=== PATIENT | male | born 1975 | race Caucasian/White ===

== ENCOUNTER 2020-12-04 11:11 | Inpatient (IN) | payer OTHER ==
[~2020-12-04] VITALS: Ht 182.9 cm; Wt 77.7 kg
[2020-12-04 11:51] LABS: BASOPHILS 1.2 % (0-2); EOSINOPHILS 2.5 % (0-7); HEMATOCRIT 50.6 % (42.0-54.0); HEMOGLOBIN 17.2 g/dL (13.5-17.5); IMMATURE GRANULOCYTES 0.2 % (0-5); LYMPHOCYTE ABS# 1.79 10x3/uL (1.32-3.57); LYMPHOCYTES 37.2 % (15-50); MCH 29.6 pg (26.0-34.0); MCV 86.9 fL (80.0-100.0); MEAN PLATELET VOLUME 9.8 fL (7.4-10.4); MONOCYTES 16.8 % (2-11); NEUTROPHIL ABS# 2.02 10x3/uL (1.78-5.38); NEUTROPHILS 42.1 % (40-80); PLATELET COUNT 248 10x3/uL (130-400); RBC 5.82 10x6/uL (4.20-6.10); RDW 13.7 % (11.5-14.5); WBC 4.8 10x3/uL (4.8-10.8)
[2020-12-04 11:59] VITALS: Ht 182.9 cm; Wt 77.7 kg
[2020-12-04 12:01] LABS: APTT 30.9 SECONDS (22.8-39.4); INR 1.13 (0.85-1.17); PROTIME 13.4 SECONDS (11.6-15.0)
[2020-12-04 12:03] LABS: ANION GAP 12.2 mmol/L (8-16); CALCIUM 8.8 mg/dL (8.5-10.1); CARBON DIOXIDE 27.6 mmol/L (21.0-32.0); CREATININE - SERUM 1.2 mg/dL (0.6-1.3); POTASSIUM - SERUM 3.8 mmol/L (3.5-5.1)
[2020-12-04 12:17] LABS: ALBUMIN 3.4 g/dL (3.4-5.0); BILIRUBIN - TOTAL 4.05 mg/dL (0.2-1.3)
[2020-12-04] MEDS ORDERED: OMEPRAZOLE20 M1 PO (13:12)
[2020-12-04 17:30] VITALS: BP 115/64
[2020-12-04 17:46] VITALS: BP 124/74
--- NOTE | 2020-12-04 18:45 | NUR ---
PATIENT IN BED WITH EYES CLOSED RESTING QUIETLY. CALL LIGHT WITHIN REACH.
--- NOTE | 2020-12-04 19:34 | NUR ---
PATIENT IV STARTED X 3 STICKS LEFT ARM. TOLERATED WITH SMALL AMOUNT OF PAIN. NO COMPLAINTS OR SIGNS OF DISTRESS. ZOFRAN GIVEN. IVF STARTED. CALL LIGHT WITHIN REACH.
[2020-12-04 20:03] LABS: BILIRUBIN 1+ (NEGATIVE); KETONE NEGATIVE (NEGATIVE); NITRITE NEGATIVE (NEGATIVE); UROBILINOGEN NORMAL mg/dL (< 2)
[2020-12-04 20:10] LABS: UDS - AMPHET POSITIVE QUAL (NEGATIVE); UDS - BARB NEGATIVE QUAL (NEGATIVE); UDS - BENZO NEGATIVE QUAL (NEGATIVE); UDS - COCAINE NEGATIVE QUAL (NEGATIVE); UDS - OPIATE NEGATIVE QUAL (NEGATIVE); UDS - PCP NEGATIVE QUAL (NEGATIVE); UDS - THC POSITIVE QUAL (NEGATIVE)
[2020-12-05 01:56] VITALS: BP 113/73
--- NOTE | 2020-12-05 02:35 | NUR ---
I have reviewed this patient and I concur with the Shift Assessment completed by the Licensed Practical Nurse today this shift.
[2020-12-05 04:55] VITALS: BP 134/88
[2020-12-05 05:19] LABS: BASOPHILS 1.6 % (0-2); HEMATOCRIT 46.2 % (42.0-54.0); HEMOGLOBIN 15.6 g/dL (13.5-17.5); IMMATURE GRANULOCYTES 0.2 % (0-5); LYMPHOCYTE ABS# 2.46 10x3/uL (1.32-3.57); LYMPHOCYTES 48.9 % (15-50); MCH 29.2 pg (26.0-34.0); MCHC 33.8 g/dL (31.0-37.0); MCV 86.5 fL (80.0-100.0); MEAN PLATELET VOLUME 9.7 fL (7.4-10.4); MONOCYTES 17.1 % (2-11); NEUTROPHIL ABS# 1.47 10x3/uL (1.78-5.38); NEUTROPHILS 29.2 % (40-80); PLATELET COUNT 241 10x3/uL (130-400); RBC 5.34 10x6/uL (4.20-6.10); RDW 13.8 % (11.5-14.5)
[2020-12-05 05:46] LABS: ALBUMIN 2.8 g/dL (3.4-5.0); ALKALINE PHOSPHATASE 386 U/L (30-120); BILIRUBIN - TOTAL 2.79 mg/dL (0.2-1.3); CALC OSMOLALITY 272 mosm/kg (275-300); CALCIUM 8.3 mg/dL (8.5-10.1); CARBON DIOXIDE 27.9 mmol/L (21.0-32.0); CHLORIDE - SERUM 104 mmol/L (98-107); GLUCOSE 98 mg/dL (74-106); POTASSIUM - SERUM 3.9 mmol/L (3.5-5.1); PROTEIN - SERUM 6.7 g/dL (6.4-8.2); SODIUM 137 mmol/L (136-145); UREA NITROGEN 11 mg/dL (7-18); eGFR NON AFRICAN AMERICAN 85 mL/min (90-120)
[2020-12-05 05:47] LABS: ALT (SGPT) 1800 U/L (10-68)
--- NOTE | 2020-12-05 08:15 | NUR ---
AWAKE AND ALERT. VISITOR AT BEDSIDE. LUNGS ARE CLEAR BILATERALLY, NO COUGH NOTED. USED IS INSTRUCTED. SKIN IS INTACT WITHOUT REDNESS. IV TO LEFT FOREARM IS PATENT WITHOUT REDNESS AT INSERTION SITE. SITTING UP IN BED EATING BREAKFAST. DENIES NEEDS.
[2020-12-05 09:07] VITALS: BP 112/76
--- NOTE | 2020-12-05 09:10 | NUR ---
REQUESTED AND GIVNE ONE PERCOCET PO FOR C/O ABDOMINAL PAIN LEVEL 6. WILL MONITOR.
[2020-12-05 10:11] LABS: HEPATITIS C ANTIBODY <0.1 S/CO RAT (0.0-0.9)
[2020-12-05 11:53] VITALS: BP 119/81
--- NOTE | 2020-12-05 13:30 | NUR ---
LUNCH SERVED IN ROOM. FEEDS SELF. DENIES NEEDS.
--- NOTE | 2020-12-05 17:14 | NUR ---
REQUESTED AND GIVNE ONE PERCOCET PO FOR C/O ABDOMINAL PAIN LEVEL 7. WILL MONITOR.
[2020-12-05 17:20] VITALS: BP 124/77
--- NOTE | 2020-12-05 17:46 | NUR ---
ATE ABOUT HALF OF DINNER. NO CHANGES NOTED. DENIES NEEDS.
[2020-12-05 20:00] VITALS: BP 122/84
[2020-12-06] VITALS: BP 126/86
[2020-12-06 04:00] VITALS: BP 123/80
[2020-12-06 06:27] LABS: HEMATOCRIT 45.6 % (42.0-54.0); HEMOGLOBIN 15.4 g/dL (13.5-17.5); LYMPHOCYTE ABS# 2.83 10x3/uL (1.32-3.57); MCH 29.4 pg (26.0-34.0); MCHC 33.8 g/dL (31.0-37.0); MEAN PLATELET VOLUME 10.2 fL (7.4-10.4); NEUTROPHIL ABS# 2.29 10x3/uL (1.78-5.38); PLATELET COUNT 249 10x3/uL (130-400); RBC 5.24 10x6/uL (4.20-6.10); RDW 13.7 % (11.5-14.5); WBC 6.2 10x3/uL (4.8-10.8)
[2020-12-06 06:52] LABS: ALBUMIN 2.8 g/dL (3.4-5.0); ALKALINE PHOSPHATASE 380 U/L (30-120); BILIRUBIN - TOTAL 2.09 mg/dL (0.2-1.3); CALC OSMOLALITY 272 mosm/kg (275-300); CALCIUM 8.2 mg/dL (8.5-10.1); CARBON DIOXIDE 27.1 mmol/L (21.0-32.0); CHLORIDE - SERUM 105 mmol/L (98-107); GLUCOSE 99 mg/dL (74-106); POTASSIUM - SERUM 4.2 mmol/L (3.5-5.1); PROTEIN - SERUM 6.3 g/dL (6.4-8.2); SODIUM 137 mmol/L (136-145); UREA NITROGEN 10 mg/dL (7-18); eGFR NON AFRICAN AMERICAN 85 mL/min (90-120)
[2020-12-06 06:54] LABS: ALT (SGPT) 1450 U/L (10-68)
[2020-12-06 06:56] LABS: EOSINOPHILS 1 % (0-7); LYMPHOCYTES 47 % (15-50); MONOCYTES 2 % (2-11); NEUTROPHILS 47 % (40-80)
[2020-12-06 06:57] LABS: PLATELET ESTIMATE NORMAL
--- NOTE | 2020-12-06 08:23 | NUR ---
ROUSES TO VERBAL STIMULATION. ORIENTED X3. NO C/O AT THIS TIME. LUNGS ARE CLEAR BILATERALLY, NO COUGH NOTED. SKIN IS INTACT WITHOUT REDNESS. IV TO LEFT FOREARM/WRIST AREA IS PATENT WITHOUT REDNESS AT INSERTION SITE. DENIES NEEDS.
[2020-12-06 09:30] VITALS: BP 133/79
--- NOTE | 2020-12-06 09:30 | NUR ---
ENCOURAGED TO EAT BREAKFAST. TOOK AM MEDS WITHOUT DIFFICULTY. DENIES NEEDS.
[2020-12-06 13:05] VITALS: BP 142/79
--- NOTE | 2020-12-06 14:16 | NUR ---
REQUESTED AND GIVEN ONE PERCOCET PO FOR C/O BACK PAIN LEVEL 7. WILL MONITOR.
[2020-12-06 17:02] VITALS: BP 133/80
--- NOTE | 2020-12-06 18:23 | NUR ---
FAMILY BROUGHT FOOD IN FROM OUTSIDE. PATIENT ATE WELL. NO CHANGES NOTED. DENIES NEEDS.
--- NOTE | 2020-12-06 19:00 | NUR ---
BEDSIDE REPORT RECEIVED AND CARE OF PT ASSUMED. PT LYING IN SUPINE POSITION WATCHING TV. IV TO LEFT FA PATENT WITH NS INFUSING AT 100 ML/HR. IS AT BEDSIDE AND PT DEMONSTRATED PROPER USE. WILL MONITOR FOR NEEDS.
--- NOTE | 2020-12-06 19:40 | NUR ---
GAVE PERCOCET PO PER REQUEST FOR ACHING ABDOMINAL PAIN, PER PRN ORDER. WILL MONITOR FOR EFFECTIVNESS.
[2020-12-06 20:00] VITALS: BP 147/98
--- NOTE | 2020-12-06 20:00 | NUR ---
RE-INFORCED INSTRUCTIONS ON USE OF INCENTIVE INSPIROMETER. PT RETURNED DEMONSTRATED WITH OVER 2000 INSPIRED VOLUME.
--- NOTE | 2020-12-06 21:00 | NUR ---
PLACED SCD'S ON BLE PER ORDER AND INSTRUCTED PT ON USE AND PURPOSE.
--- NOTE | 2020-12-06 22:00 | NUR ---
PT HAD SHOWER AND ALL LINENS CHANGED. RE-STARTED IV FLUIDS AND SCD'S.
[2020-12-07] VITALS: BP 131/89
[2020-12-07 04:00] VITALS: BP 134/89
[2020-12-07 06:40] LABS: ALBUMIN 2.7 g/dL (3.4-5.0); ALKALINE PHOSPHATASE 372 U/L (30-120); BILIRUBIN - TOTAL 1.33 mg/dL (0.2-1.3); CALC OSMOLALITY 272 mosm/kg (275-300); CALCIUM 8.3 mg/dL (8.5-10.1); CARBON DIOXIDE 24.6 mmol/L (21.0-32.0); CHLORIDE - SERUM 106 mmol/L (98-107); GLUCOSE 96 mg/dL (74-106); POTASSIUM - SERUM 3.7 mmol/L (3.5-5.1); PROTEIN - SERUM 6.4 g/dL (6.4-8.2); SODIUM 137 mmol/L (136-145); UREA NITROGEN 9 mg/dL (7-18); eGFR NON AFRICAN AMERICAN 85 mL/min (90-120)
[2020-12-07 06:43] LABS: ALT (SGPT) 1086 U/L (10-68)
[2020-12-07 06:45] LABS: BASOPHILS 0.6 % (0-2); EOSINOPHILS 3.5 % (0-7); HEMOGLOBIN 14.4 g/dL (13.5-17.5); LYMPHOCYTE ABS# 2.83 10x3/uL (1.32-3.57); LYMPHOCYTES 45.6 % (15-50); MCH 28.8 pg (26.0-34.0); MCHC 33.5 g/dL (31.0-37.0); MEAN PLATELET VOLUME 9.8 fL (7.4-10.4); MONOCYTES 9.7 % (2-11); NEUTROPHIL ABS# 2.52 10x3/uL (1.78-5.38); NEUTROPHILS 40.6 % (40-80); RDW 13.6 % (11.5-14.5); WBC 6.2 10x3/uL (4.8-10.8)
[2020-12-07 06:47] LABS: PLATELET COUNT 309 10x3/uL (130-400)
[2020-12-07 07:49] VITALS: BP 130/85
--- NOTE | 2020-12-07 08:00 | NUR ---
PATIENT IN BED WITH IV INTACT. NO COMPLAINTS OR SIGNS OF DISTRESS. CALL LIGHT WITHIN REACH.
--- NOTE | 2020-12-07 10:00 | NUR ---
PATIENT IN BED WITH EYES CLOSED RESTING QUIETLY AT THIS TIME. CALL LIGHT WITHIN REACH.
--- NOTE | 2020-12-07 10:41 | MORECARE ---
CASE MANAGEMENT DISCHARGE SUMMARY PATIENT: NAOMI CARBONE UNIT: [id number] ADM DATE: 12/04/20 AGE: 45 : 71 SEX: M ROOM/BED: D.2215 AUTHOR: KIRADOC PHYSICIAN: REFERRING PHYSICIAN: KESHAWN HERNANDEZ MD DATE OF SERVICE: 12/07/20 Discharge Plan Patient Name: NAOMI CARBONE Facility: [facility]:[place] : 1975 Planned Disposition: Home or Self Care Anticipated Discharge Date: Discharge Date: Expected LOS: Initial Reviewer: [email or web address] Initial Review Date: 12/04/2020 Generated: 12/07/20 11:40 am Comments DCP- Discharge Planning Updated by [email or web address]: Sarita Carbajal on 12/07/20 8:[address] Patient Name: NAOMI CARBONE Admission Status: Elective Accout number: [id number] Admission Date: 12-04-2020 : 1975 Admission Diagnosis: Attending: DEANGELO Current LOS: 3 Anticipated DC Date: Planned Disposition: Home or Self Care Primary Insurance: [facility] Discharge Planning Comments: . CM met with patient & to complete initial dc planning assessment. CM educated patient on the CM role and verbal consent given by patient to complete assessment. Patient lives at home with his where he is independent with his care. At discharge patient plans to return home and feels this is a safe discharge. CM discussed availability of home health, rehab services, and medical equipment. Patient denied known discharge needs at this time. 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 CM will continue to follow and will assist as needed with dc plans/needs Lpn Private Duty: Sarita Carbajal DCPIA - Discharge Planning Initial Assessment Updated by [email or web address]: Sarita Carbajal on 12/07/20 10:38 am * Is the patient Alert and Oriented? Yes * How many steps to enter\exit or inside your home? * PCP DR HERNANDEZ * Pharmacy [facility] * Preadmission Environment Home with Family * ADLs Independent * Equipment None * List name and contact numbers for known caregivers / representatives who currently or will assist patient after discharge: SPENSER CARBONE ( SPOUSE) [phone] * Verbal permission to speak to the caregivers and representatives has been obtained from the patient. N/A * Community resources currently utilized None * Additional services required to return to the preadmission environment? No * Can the patient safely return to the preadmission environment? Yes * Has this patient been hospitalized within the prior 30 days at any hospital? No Patient Name: NAOMI CARBONE Page [id number] at 1041 All edits/amendments must be made on the electronic document DICTATION DATE: 12/07/20 1040 TOOL SETTER: YASMIN 12/07/20 1040 RPT#: [id number] DC DATE: STATUS: ADM IN [facility] [address] [place] [address] END OF REPORT
--- NOTE | 2020-12-07 11:24 | NUR ---
PATIENT UP AMBULATING IN MEI.
[2020-12-07 12:04] VITALS: BP 147/98
[2020-12-07] MEDS ORDERED: NICODERM CQ1 EAC3 TRANSDERM (12:42)
--- NOTE | 2020-12-07 14:00 | NUR ---
PATIENT UP AMBULATING IN MEI WITH AT THIS TIME.
--- NOTE | 2020-12-07 14:41 | NUR ---
PATIENT RECIEVED DC INSTRUCTIONS. VERBALIZED UNDERSTANDING. NO QUESTIONS AT THIS TIME. IV REMOVED WITH CATH TIP INTACT. VERBALIZED UNDERSTANDING. NO QUESTIONS AT THIS TIME. FAMILY AT SIDE. AMBULATED DOWN TO PRIVATE VEHICLE WITH PERSONAL BELONGINGS ASSISTED BY . REFUSED WC AT THIS TIME.
== END 2020-12-07 14:57 | disposition home or self-care (01) | DRG 442 ==
LOC: D.MS 11:11
PROVIDERS: Family Medicine Adult Medicine; ADMIT Family Medicine; ATTEND Family Medicine
DX: K72.00 Acute and subacute hepatic failure without coma (principal); B15.9 Hepatitis A without hepatic coma; R17 Unspecified jaundice; F19.20 Other psychoactive substance dependence, uncomplicated; R74.01 Elevation of levels of liver transaminase levels; K21.9 Gastro-esophageal reflux disease without esophagitis; F17.200 Nicotine dependence, unspecified, uncomplicated

== ENCOUNTER 2021-02-23 13:47 | Emergency (ER) | payer BC ==
[~2021-02-23] VITALS: Ht 182.9 cm; Wt 79.5 kg
[~2021-02-23 13:47] MED LIST: NICODERM CQ1 EAC3 TRANSDERM; OMEPRAZOLE20 M1 PO
[2021-02-23 14:03] VITALS: Ht 182.9 cm; Wt 79.5 kg
[2021-02-23] MEDS ORDERED: WELLBUTRIN (14:04)
[2021-02-23] MEDS ORDERED: BUPROPION XL150 MG PO (14:11)
[2021-02-23] MEDS ORDERED: KLONOPIN0.5 MG PO (15:34)
[2021-02-23 16:44] VITALS: BP 132/95
== END 2021-02-23 16:27 | disposition home or self-care (01) ==
LOC: D.ER 13:47
DX: F41.9 Anxiety disorder, unspecified (principal); R51.9 Headache, unspecified; K21.9 Gastro-esophageal reflux disease without esophagitis